=== PATIENT | male | born 1930 | race Two or more races ===

== ENCOUNTER 2021-04-19 14:27 | Inpatient (IN) | payer OTHER ==
[2021-04-19 15:39] LABS: INR 0.99 (0.83-1.09)
[2021-04-19 15:41] LABS: ACTIVATED PTT 29.7 SECONDS (25.2-36.5); BASO % 0.6 % (0-2.0); EOS % 1.9 % (0-4.5); HEMATOCRIT 37.7 % (35.4-49); HEMOGLOBIN 12.9 GM/dL (11.7-16.9); LYMPH % 15.2 % (8-40); MCH 30.3 pg (25.7-33.7); MCHC 34.1 g/dl (32.0-35.9); MEAN CELL VOLUME 88.8 fl (80-96); MEAN PLT VOLUME 7.9 fl (7.5-11.1); MONO % 10.5 % (3.8-10.2); NEUT % 71.8 % (42.8-82.8); PLATELET COUNT 244 10^3/uL (134-434); RBC 4.24 M/mm3 (4.00-5.60); RDW 14.3 % (11.9-15.9); WHITE BLOOD COUNT 9.9 K/mm3 (4.0-10.0)
[2021-04-19 15:53] LABS: CHLORIDE 101 mmol/L (98-107); SODIUM 137 mmol/L (136-145)
[2021-04-19 15:56] LABS: CALCIUM 9.4 mg/dL (8.5-10.1)
[2021-04-19 15:57] LABS: ALBUMIN 4.5 g/dl (3.4-5.0); ANION GAP 7 MMOL/L (8-16); BLOOD UREA NITROGEN 37.5 mg/dL (7-18); CO2 29 mmol/L (21-32); GLUCOSE,RANDOM 133 mg/dL (74-106); MAGNESIUM 2.7 mg/dL (1.8-2.4)
[2021-04-19 16:00] LABS: CREATININE 1.6 mg/dL (0.55-1.3); SGOT/AST 131 U/L (15-37)
[2021-04-19 16:01] LABS: BILIRUBIN,TOTAL 0.4 mg/dL (0.2-1); SGPT/ALT 57 U/L (13-61); TOT PROT 8.2 g/dl (6.4-8.2)
[2021-04-19 16:02] LABS: ALK PHOS 120 U/L (45-117)
[2021-04-19] MEDS ORDERED: SODIUM CHLORIDE 0.9% 500 ML INFUS.BAG IV ONE ×2 (16:08→16:31)
[2021-04-19] MEDS ORDERED: ACETAMINOPHEN 1000 MG/100 ML VIAL (NON FORMULARY) IVPB ONE (16:09)
[2021-04-19 16:38] LABS: EPI CELLS 1 /uL (0-25.1); HYALINE CASTS 1 /uL (0-3.1); URINE APPEARANCE CLEAR; URINE BACTERIA 2 /uL (0-1359); URINE BILIRUBIN NEGATIVE (NEGATIVE); URINE COLOR YELLOW; URINE GLUCOSE (UA) NEGATIVE (NEGATIVE); URINE KETONE NEGATIVE (NEGATIVE); URINE LEUK ESTERASE NEGATIVE (NEGATIVE); URINE NITRITE NEGATIVE (NEGATIVE); URINE PROTEIN NEGATIVE (NEGATIVE); URINE RBC 7 /uL (0-23.9); URINE UROBILINOGEN 0.2 mg/dL (0.2-1.0); URINE WBC 2 /uL (0-25.8)
[2021-04-19] MEDS ORDERED: ACETAMINOPHEN INJECTION 100 ML IVPB ONE (16:55)
[2021-04-19] MEDS ORDERED: ACETAMINOPHEN 500 MG TABLET (FP) PO PRN (19:47)
[2021-04-19] MEDS: SODIUM CHLORIDE 1,000 ML IV SCH (19:55)
[2021-04-19 20:24] LABS: COCAINE, UR NEGATIVE (NEGATIVE); PHENCYCLIDINE,URINE NEGATIVE (NEGATIVE); URINE BARBITURATES NEGATIVE (NEGATIVE)
[2021-04-19 20:29] LABS: OPIATES, URI NEGATIVE (NEGATIVE)
[2021-04-19 20:30] LABS: URINE BENZODIAZEPINES NEGATIVE (NEGATIVE)
[2021-04-19 20:34] LABS: METHADONE, UR NEGATIVE (NEGATIVE)
[2021-04-19 20:36] LABS: URINE AMPHETAMINES NEGATIVE (NEGATIVE)
[2021-04-19] MEDS ORDERED: ATORVASTATIN CA 40 MG TABLET (FP) PO SCH (22:00)
[2021-04-19 22:06] VITALS: BMI 23.2
[2021-04-19] MEDS: HEPARIN NA (PORCINE) 5,000 UNITS/ML 1ML VIAL SQ SCH (22:08)
[2021-04-19] MEDS: MELATONIN 5 MG TABLETS PO PRN (22:08)
[2021-04-20] MEDS: HEPARIN NA (PORCINE) 5,000 UNITS/ML 1ML VIAL SQ SCH ×3 (05:46→22:39)
[2021-04-20 07:36] LABS: EOS % 7.4 % (0-4.5); HEMATOCRIT 36.3 % (35.4-49); HEMOGLOBIN 12.1 GM/dL (11.7-16.9); LYMPH % 30.3 % (8-40); MCH 30.1 pg (25.7-33.7); MCHC 33.4 g/dl (32.0-35.9); MEAN CELL VOLUME 89.9 fl (80-96); MEAN PLT VOLUME 8.2 fl (7.5-11.1); MONO % 10.1 % (3.8-10.2); NEUT % 51.2 % (42.8-82.8); PLATELET COUNT 224 10^3/uL (134-434); RBC 4.04 M/mm3 (4.00-5.60); RDW 14.3 % (11.9-15.9); WHITE BLOOD COUNT 5.9 K/mm3 (4.0-10.0)
[2021-04-20 07:38] LABS: CHLORIDE 108 mmol/L (98-107); SODIUM 141 mmol/L (136-145)
[2021-04-20 07:47] LABS: CALCIUM 8.6 mg/dL (8.5-10.1)
[2021-04-20 07:48] LABS: ANION GAP 6 MMOL/L (8-16); CO2 26 mmol/L (21-32); GLUCOSE,RANDOM 95 mg/dL (74-106); MAGNESIUM 2.4 mg/dL (1.8-2.4)
[2021-04-20 07:49] LABS: ALK PHOS 94 U/L (45-117)
[2021-04-20 07:51] LABS: CHOLESTEROL 158 mg/dL (50-200); CREATININE 1.1 mg/dL (0.55-1.3); PHOSPHOROUS 3.6 mg/dL (2.5-4.9); SGOT/AST 127 U/L (15-37); SGPT/ALT 57 U/L (13-61); TRIGLYCERIDES 95 mg/dL (0-150)
[2021-04-20 07:52] LABS: BILIRUBIN,TOTAL 0.4 mg/dL (0.2-1); LDL CHOLESTEROL (ONLY SJRH) 85 mg/dL (5-100)
[2021-04-20 07:53] LABS: HDL CHOLESTEROL 49 mg/dL (40-60)
[2021-04-20 08:48] LABS: ALBUMIN 3.2 g/dl (3.4-5.0); TOT PROT 6.2 g/dl (6.4-8.2)
[2021-04-20] MEDS: LISINOPRIL 10 MG TABLET PO SCH (10:14)
[2021-04-20] MEDS: SODIUM CHLORIDE 1,000 ML IV SCH ×2 (10:14→18:15)
[2021-04-20] MEDS: ASPIRIN COATED 81 MG TABLET.EC PO SCH (10:14)
[2021-04-20] MEDS: FINASTERIDE 5 MG TABLET (FP) PO SCH (10:14)
[2021-04-20] MEDS: CLOPIDOGREL BISULFATE 75 MG TABLET (FP) PO SCH (10:14)
[2021-04-20] MEDS: MELATONIN 5 MG TABLETS PO PRN (22:39)
[2021-04-21] MEDS: HEPARIN NA (PORCINE) 5,000 UNITS/ML 1ML VIAL SQ SCH ×2 (06:28→13:57)
[2021-04-21 08:28] LABS: HEMATOCRIT 34.2 % (35.4-49); HEMOGLOBIN 11.6 GM/dL (11.7-16.9); MCH 30.3 pg (25.7-33.7); MCHC 33.9 g/dl (32.0-35.9); MEAN CELL VOLUME 89.3 fl (80-96); MEAN PLT VOLUME 8.5 fl (7.5-11.1); PLATELET COUNT 232 10^3/uL (134-434); RBC 3.84 M/mm3 (4.00-5.60); RDW 14.2 % (11.9-15.9); WHITE BLOOD COUNT 6.6 K/mm3 (4.0-10.0)
[2021-04-21 08:45] LABS: ALBUMIN 3.1 g/dl (3.4-5.0); CALCIUM 8.6 mg/dL (8.5-10.1)
[2021-04-21 08:46] LABS: BLOOD UREA NITROGEN 19.2 mg/dL (7-18); MAGNESIUM 2.5 mg/dL (1.8-2.4)
[2021-04-21 08:49] LABS: CREATININE 0.8 mg/dL (0.55-1.3)
[2021-04-21 08:50] LABS: BILIRUBIN,TOTAL 0.2 mg/dL (0.2-1); PHOSPHOROUS 3.1 mg/dL (2.5-4.9)
[2021-04-21 08:51] LABS: TOT PROT 6.2 g/dl (6.4-8.2)
[2021-04-21] MEDS ORDERED: ARTIFICIAL TEARS (POLYVINYL ALCOHOL) OPTH DROPS OU PRN (10:07)
[2021-04-21] MEDS: LISINOPRIL 10 MG TABLET PO SCH (10:59)
[2021-04-21] MEDS: ASPIRIN COATED 81 MG TABLET.EC PO SCH (10:59)
[2021-04-21] MEDS: CLOPIDOGREL BISULFATE 75 MG TABLET (FP) PO SCH (10:59)
[2021-04-21] MEDS: FINASTERIDE 5 MG TABLET (FP) PO SCH (11:00)
[2021-04-21] MEDS: SODIUM CHLORIDE 1,000 ML IV SCH (18:26)
[2021-04-21] MEDS: MELATONIN 5 MG TABLETS PO PRN (21:38)
[2021-04-21] MEDS: traZODone HCL 50 MG TABLET (FP) PO SCH (21:39)
[2021-04-22 08:29] LABS: HEMATOCRIT 37.3 % (35.4-49); HEMOGLOBIN 12.6 GM/dL (11.7-16.9); MCHC 33.8 g/dl (32.0-35.9); MEAN PLT VOLUME 8.2 fl (7.5-11.1); PLATELET COUNT 213 10^3/uL (134-434); RBC 4.19 M/mm3 (4.00-5.60); RDW 14.5 % (11.9-15.9); WHITE BLOOD COUNT 8.1 K/mm3 (4.0-10.0)
[2021-04-22 08:39] LABS: CALCIUM 8.8 mg/dL (8.5-10.1)
[2021-04-22 08:40] LABS: MAGNESIUM 2.2 mg/dL (1.8-2.4)
[2021-04-22 08:43] LABS: CREATININE 0.8 mg/dL (0.55-1.3); PHOSPHOROUS 3.3 mg/dL (2.5-4.9)
[2021-04-22] MEDS: ENOXAPARIN NA (PORCINE) 40 MG/0.4 ML DISP.SYRIN SQ SCH (10:00)
[2021-04-22] MEDS: ASPIRIN COATED 81 MG TABLET.EC PO SCH (10:01)
[2021-04-22] MEDS: CLOPIDOGREL BISULFATE 75 MG TABLET (FP) PO SCH (10:01)
[2021-04-22] MEDS: FINASTERIDE 5 MG TABLET (FP) PO SCH (10:01)
[2021-04-22] MEDS: LISINOPRIL 10 MG TABLET PO SCH (10:02)
[2021-04-22] MEDS ORDERED: SODIUM CHLORIDE 1,000 ML IV SCH (11:45)
[2021-04-22] MEDS ORDERED: amLODIPine BESYLATE 5 MG TABLET (FP) PO ONE (22:25)
[2021-04-22] MEDS: MELATONIN 5 MG TABLETS PO PRN (22:42)
[2021-04-22] MEDS: traZODone HCL 50 MG TABLET (FP) PO SCH (22:42)
[2021-04-23 06:10] VITALS: PULSE 59
[2021-04-23] MEDS ORDERED: LABETALOL HCL 5 MG/1 ML (100MG/20 ML VIAL) IVPUSH ONE (06:16)
[2021-04-23 09:04] LABS: HEMATOCRIT 39.1 % (35.4-49); HEMOGLOBIN 13.4 GM/dL (11.7-16.9); MCH 30.4 pg (25.7-33.7); MCHC 34.3 g/dl (32.0-35.9); MEAN CELL VOLUME 88.6 fl (80-96); PLATELET COUNT 242 10^3/uL (134-434); RBC 4.41 M/mm3 (4.00-5.60); RDW 14.2 % (11.9-15.9); WHITE BLOOD COUNT 9.7 K/mm3 (4.0-10.0)
[2021-04-23 09:40] LABS: BLOOD UREA NITROGEN 14.6 mg/dL (7-18); CALCIUM 9.1 mg/dL (8.5-10.1); MAGNESIUM 2.1 mg/dL (1.8-2.4)
[2021-04-23 09:43] LABS: CREATININE 0.9 mg/dL (0.55-1.3)
[2021-04-23 09:44] LABS: PHOSPHOROUS 3.6 mg/dL (2.5-4.9)
[2021-04-23 09:51] VITALS: BP 152/66; TEMP 98
[2021-04-23] MEDS: LISINOPRIL 10 MG TABLET PO SCH (10:12)
[2021-04-23] MEDS: FINASTERIDE 5 MG TABLET (FP) PO SCH (10:12)
[2021-04-23] MEDS: CLOPIDOGREL BISULFATE 75 MG TABLET (FP) PO SCH (10:12)
[2021-04-23] MEDS: ASPIRIN COATED 81 MG TABLET.EC PO SCH (10:12)
[2021-04-23] MEDS: ENOXAPARIN NA (PORCINE) 40 MG/0.4 ML DISP.SYRIN SQ SCH (10:12)
== END 2021-04-23 11:40 | disposition home or self-care (01) | DRG 683 ==
LOC: JER 14:27 → JERBED 16:41 → J4W 20:56
PROVIDERS: ADMIT Internal Medicine; ATTEND Internal Medicine
DX: N17.9 Acute kidney failure, unspecified (principal); M62.82 Rhabdomyolysis; I10 Essential (primary) hypertension; I73.9 Peripheral vascular disease, unspecified; R55 Syncope and collapse; I65.21 Occlusion and stenosis of right carotid artery; E78.5 Hyperlipidemia, unspecified; N40.0 Benign prostatic hyperplasia without lower urinary tract symptoms
CPT/HCPCS: 36415; 70450-TC; 71045-TC-FY; 80048; 80053; 80061; 80307; 81003; 82550; 82553; 82570; 83036; 83735; 84100; 84300; 84443; 84484; 85025; 85027; 85610; 85730; 87086; 93005; 93010; 93225; 93226; 93306-TC; 93880-TC; 97116-GP; 97161-GP; 99285-25; C9803; J0131; J1644; U0003; U0005

== ENCOUNTER 2021-05-17 09:45 | Inpatient (IN) | payer OTHER ==
[2021-05-17 11:54] LABS: BASO % 0.4 % (0-2.0); EOS % 1.4 % (0-4.5); LYMPH % 8.3 % (8-40); MCH 29.8 pg (25.7-33.7); MCHC 33.3 g/dl (32.0-35.9); MEAN CELL VOLUME 89.4 fl (80-96); MEAN PLT VOLUME 8.6 fl (7.5-11.1); MONO % 4.6 % (3.8-10.2); NEUT % 85.3 % (42.8-82.8); PLATELET COUNT 248 10^3/uL (134-434); RBC 4.36 M/mm3 (4.00-5.60); RDW 13.6 % (11.9-15.9); WHITE BLOOD COUNT 9.8 K/mm3 (4.0-10.0)
[2021-05-17 12:10] LABS: CHLORIDE 105 mmol/L (98-107); SODIUM 138 mmol/L (136-145)
[2021-05-17 12:12] LABS: ALBUMIN 4.1 g/dl (3.4-5.0); ANION GAP 6 MMOL/L (8-16); BLOOD UREA NITROGEN 41.2 mg/dL (7-18); CALCIUM 9.3 mg/dL (8.5-10.1); CO2 27 mmol/L (21-32)
[2021-05-17 12:13] LABS: GLUCOSE,RANDOM 133 mg/dL (74-106)
[2021-05-17 12:15] LABS: SGPT/ALT 32 U/L (13-61)
[2021-05-17 12:16] LABS: CREATININE 1.7 mg/dL (0.55-1.3); SGOT/AST 34 U/L (15-37)
[2021-05-17 12:17] LABS: BILIRUBIN,TOTAL 0.3 mg/dL (0.2-1); TOT PROT 7.9 g/dl (6.4-8.2)
[2021-05-17 12:18] LABS: ALK PHOS 136 U/L (45-117)
[2021-05-17 13:52] LABS: PH,URINE 6.5 (5.0-8.0); URINE APPEARANCE CLEAR; URINE BILIRUBIN NEGATIVE (NEGATIVE); URINE COLOR YELLOW; URINE GLUCOSE (UA) NEGATIVE (NEGATIVE); URINE KETONE NEGATIVE (NEGATIVE); URINE LEUK ESTERASE NEGATIVE (NEGATIVE); URINE NITRITE NEGATIVE (NEGATIVE); URINE PROTEIN NEGATIVE (NEGATIVE); URINE UROBILINOGEN 0.2 mg/dL (0.2-1.0)
[2021-05-17] MEDS ORDERED: SODIUM CHLORIDE 0.9% 500 ML INFUS.BAG IV ONE (17:21)
[2021-05-17] MEDS ORDERED: LISINOPRIL 10 MG TABLET PO ONE (17:59)
[2021-05-17] MEDS ORDERED: HEPARIN NA (PORCINE) 5,000 UNITS/ML 1ML VIAL ONE (18:13)
[2021-05-17] MEDS ORDERED: LISINOPRIL 5 MG TABLET ONE ×2 (18:13→20:10)
[2021-05-17] MEDS ORDERED: ASPIRIN 81 MG CHEWABLE TABLETS ONE ×2 (18:13→20:10)
[2021-05-17] MEDS: FINASTERIDE 5 MG TABLET (FP) PO SCH (20:19)
[2021-05-17] MEDS: ASPIRIN 81 MG CHEWABLE TABLETS PO SCH (20:19)
[2021-05-17] MEDS ORDERED: INSULIN SLIDING SCALE (NOVOLOG) 1 VIAL SQ SCH (22:00)
[2021-05-17] MEDS: SODIUM CHLORIDE 1,000 ML IV SCH (22:48)
[2021-05-18] MEDS: ATORVASTATIN CA 40 MG TABLET (FP) PO SCH ×2 (01:37→21:00)
[2021-05-18] MEDS: HEPARIN NA (PORCINE) 5,000 UNITS/ML 1ML VIAL SQ SCH ×4 (01:37→21:00)
[2021-05-18 01:55] VITALS: BMI 19.9
[2021-05-18] MEDS ORDERED: LABETALOL HCL 100 MG TABLET (FP) PO ONE (04:03)
[2021-05-18] MEDS: SODIUM CHLORIDE 1,000 ML IV SCH (06:05)
[2021-05-18 08:21] LABS: BASO % 1.2 % (0-2.0); EOS % 7.8 % (0-4.5); HEMATOCRIT 35.1 % (35.4-49); HEMOGLOBIN 11.6 GM/dL (11.7-16.9); LYMPH % 24.2 % (8-40); MCH 29.5 pg (25.7-33.7); MCHC 33.1 g/dl (32.0-35.9); MEAN CELL VOLUME 89.2 fl (80-96); MEAN PLT VOLUME 8.8 fl (7.5-11.1); NEUT % 57.8 % (42.8-82.8); PLATELET COUNT 220 10^3/uL (134-434); RBC 3.94 M/mm3 (4.00-5.60); RDW 13.5 % (11.9-15.9); WHITE BLOOD COUNT 5.6 K/mm3 (4.0-10.0)
[2021-05-18 08:30] LABS: BLOOD UREA NITROGEN 28.4 mg/dL (7-18)
[2021-05-18 08:31] LABS: CALCIUM 8.7 mg/dL (8.5-10.1); MAGNESIUM 2.1 mg/dL (1.8-2.4)
[2021-05-18 08:35] LABS: BILIRUBIN,TOTAL 0.4 mg/dL (0.2-1); CREATININE 1.1 mg/dL (0.55-1.3)
[2021-05-18 08:36] LABS: TOT PROT 6.2 g/dl (6.4-8.2)
[2021-05-18 08:37] LABS: ALBUMIN 3.1 g/dl (3.4-5.0)
[2021-05-18] MEDS ORDERED: PNEUMOC 13-VAL CONJ-DIP CRM/PF 0.5 ML DISP.SYRIN IM ONE (10:00)
[2021-05-18] MEDS: FINASTERIDE 5 MG TABLET (FP) PO SCH (10:28)
[2021-05-18] MEDS: ASPIRIN 81 MG CHEWABLE TABLETS PO SCH (10:28)
[2021-05-18] MEDS ORDERED: PENICILLIN G BENZATHINE 2,400,000 UNIT/4 ML PFS IM ONE (14:48)
[2021-05-18 17:24] LABS: HIV INTERPRETATION NEGATIVE (NEGATIVE)
[2021-05-19 02:50] LABS: URINE BARBITURATES NEGATIVE (NEGATIVE); URINE BENZODIAZEPINES NEGATIVE (NEGATIVE)
[2021-05-19 02:51] LABS: METHADONE, UR NEGATIVE (NEGATIVE); PHENCYCLIDINE,URINE NEGATIVE (NEGATIVE)
[2021-05-19 03:14] LABS: COCAINE, UR NEGATIVE (NEGATIVE); OPIATES, URI POSITIVE (NEGATIVE); URINE AMPHETAMINES NEGATIVE (NEGATIVE)
[2021-05-19] MEDS: HEPARIN NA (PORCINE) 5,000 UNITS/ML 1ML VIAL SQ SCH ×3 (06:08→21:46)
[2021-05-19 09:25] LABS: BASO % 0.5 % (0-2.0); EOS % 4.6 % (0-4.5); HEMATOCRIT 33.8 % (35.4-49); HEMOGLOBIN 11.3 GM/dL (11.7-16.9); LYMPH % 15.4 % (8-40); MCH 29.6 pg (25.7-33.7); MCHC 33.4 g/dl (32.0-35.9); MEAN CELL VOLUME 88.6 fl (80-96); MEAN PLT VOLUME 8.9 fl (7.5-11.1); MONO % 5.5 % (3.8-10.2); PLATELET COUNT 207 10^3/uL (134-434); RBC 3.82 M/mm3 (4.00-5.60); RDW 13.7 % (11.9-15.9); WHITE BLOOD COUNT 9.3 K/mm3 (4.0-10.0)
[2021-05-19] MEDS: FINASTERIDE 5 MG TABLET (FP) PO SCH (09:31)
[2021-05-19] MEDS: ASPIRIN 81 MG CHEWABLE TABLETS PO SCH (09:31)
[2021-05-19] MEDS: TAMSULOSIN HCL 0.4 MG CAP PO SCH (09:32)
[2021-05-19 09:36] LABS: ALBUMIN 2.9 g/dl (3.4-5.0); BLOOD UREA NITROGEN 16.3 mg/dL (7-18); CALCIUM 8.5 mg/dL (8.5-10.1)
[2021-05-19 09:48] LABS: BILIRUBIN,TOTAL 0.4 mg/dL (0.2-1); CREATININE 1.1 mg/dL (0.55-1.3); PHOSPHOROUS 2.6 mg/dL (2.5-4.9)
[2021-05-19] MEDS ORDERED: amLODIPine BESYLATE 5 MG TABLET (FP) PO ONE (10:48)
[2021-05-19] MEDS: ATORVASTATIN CA 40 MG TABLET (FP) PO SCH (21:46)
[2021-05-20] MEDS: HEPARIN NA (PORCINE) 5,000 UNITS/ML 1ML VIAL SQ SCH ×3 (05:53→21:14)
[2021-05-20 08:23] LABS: BASO % 1.1 % (0-2.0); EOS % 4.7 % (0-4.5); HEMATOCRIT 35.2 % (35.4-49); HEMOGLOBIN 11.8 GM/dL (11.7-16.9); LYMPH % 20.6 % (8-40); MCH 29.5 pg (25.7-33.7); MCHC 33.6 g/dl (32.0-35.9); MEAN PLT VOLUME 9.1 fl (7.5-11.1); MONO % 6.6 % (3.8-10.2); PLATELET COUNT 209 10^3/uL (134-434); RDW 13.4 % (11.9-15.9); WHITE BLOOD COUNT 7.4 K/mm3 (4.0-10.0)
[2021-05-20 09:06] LABS: ALBUMIN 2.8 g/dl (3.4-5.0); BLOOD UREA NITROGEN 14.7 mg/dL (7-18); CALCIUM 8.8 mg/dL (8.5-10.1)
[2021-05-20 09:07] LABS: MAGNESIUM 2.2 mg/dL (1.8-2.4)
[2021-05-20 09:10] LABS: BILIRUBIN,TOTAL 0.6 mg/dL (0.2-1); PHOSPHOROUS 2.6 mg/dL (2.5-4.9); TOT PROT 6.1 g/dl (6.4-8.2)
[2021-05-20] MEDS: amLODIPine BESYLATE 5 MG TABLET (FP) PO SCH (09:52)
[2021-05-20] MEDS: TAMSULOSIN HCL 0.4 MG CAP PO SCH (09:52)
[2021-05-20] MEDS: FINASTERIDE 5 MG TABLET (FP) PO SCH (09:52)
[2021-05-20] MEDS: ASPIRIN 81 MG CHEWABLE TABLETS PO SCH (09:52)
[2021-05-20] MEDS: ATORVASTATIN CA 40 MG TABLET (FP) PO SCH (21:14)
[2021-05-21] MEDS: HEPARIN NA (PORCINE) 5,000 UNITS/ML 1ML VIAL SQ SCH ×3 (06:07→21:22)
[2021-05-21 09:56] LABS: BASO % 1.1 % (0-2.0); EOS % 5.7 % (0-4.5); HEMATOCRIT 34.2 % (35.4-49); HEMOGLOBIN 11.7 GM/dL (11.7-16.9); LYMPH % 18.3 % (8-40); MCH 29.7 pg (25.7-33.7); MCHC 34.2 g/dl (32.0-35.9); MEAN CELL VOLUME 86.7 fl (80-96); MEAN PLT VOLUME 8.6 fl (7.5-11.1); MONO % 7.4 % (3.8-10.2); NEUT % 67.5 % (42.8-82.8); PLATELET COUNT 212 10^3/uL (134-434); RBC 3.94 M/mm3 (4.00-5.60); RDW 13.4 % (11.9-15.9); WHITE BLOOD COUNT 6.5 K/mm3 (4.0-10.0)
[2021-05-21 10:28] LABS: CALCIUM 8.6 mg/dL (8.5-10.1)
[2021-05-21 10:29] LABS: ALBUMIN 2.8 g/dl (3.4-5.0); BLOOD UREA NITROGEN 15.9 mg/dL (7-18); MAGNESIUM 2.1 mg/dL (1.8-2.4)
[2021-05-21] MEDS: TAMSULOSIN HCL 0.4 MG CAP PO SCH (10:29)
[2021-05-21] MEDS: FINASTERIDE 5 MG TABLET (FP) PO SCH (10:29)
[2021-05-21] MEDS: ASPIRIN 81 MG CHEWABLE TABLETS PO SCH (10:29)
[2021-05-21] MEDS: amLODIPine BESYLATE 5 MG TABLET (FP) PO SCH (10:29)
[2021-05-21 10:30] LABS: BILIRUBIN,TOTAL 0.3 mg/dL (0.2-1)
[2021-05-21 10:31] LABS: TOT PROT 6.2 g/dl (6.4-8.2)
[2021-05-21 10:32] LABS: PHOSPHOROUS 2.3 mg/dL (2.5-4.9)
[2021-05-21 10:33] LABS: CREATININE 1.1 mg/dL (0.55-1.3)
[2021-05-21] MEDS: ATORVASTATIN CA 40 MG TABLET (FP) PO SCH (21:22)
[2021-05-22] MEDS: HEPARIN NA (PORCINE) 5,000 UNITS/ML 1ML VIAL SQ SCH ×3 (05:55→21:59)
[2021-05-22 08:13] LABS: BASO % 1.1 % (0-2.0); EOS % 7.4 % (0-4.5); HEMATOCRIT 35.2 % (35.4-49); HEMOGLOBIN 11.9 GM/dL (11.7-16.9); LYMPH % 22.2 % (8-40); MCH 29.6 pg (25.7-33.7); MCHC 33.7 g/dl (32.0-35.9); MONO % 6.6 % (3.8-10.2); NEUT % 62.7 % (42.8-82.8); PLATELET COUNT 232 10^3/uL (134-434); RBC 4.01 M/mm3 (4.00-5.60); RDW 13.7 % (11.9-15.9); WHITE BLOOD COUNT 7.3 K/mm3 (4.0-10.0)
[2021-05-22 08:42] LABS: BLOOD UREA NITROGEN 16.7 mg/dL (7-18); CALCIUM 8.4 mg/dL (8.5-10.1)
[2021-05-22 08:43] LABS: ALBUMIN 2.9 g/dl (3.4-5.0)
[2021-05-22 08:45] LABS: CREATININE 1.1 mg/dL (0.55-1.3)
[2021-05-22 08:47] LABS: BILIRUBIN,TOTAL 0.3 mg/dL (0.2-1); TOT PROT 6.2 g/dl (6.4-8.2)
[2021-05-22] MEDS: TAMSULOSIN HCL 0.4 MG CAP PO SCH (09:51)
[2021-05-22] MEDS: amLODIPine BESYLATE 5 MG TABLET (FP) PO SCH (09:51)
[2021-05-22] MEDS: FINASTERIDE 5 MG TABLET (FP) PO SCH (09:51)
[2021-05-22] MEDS: ASPIRIN 81 MG CHEWABLE TABLETS PO SCH (09:51)
[2021-05-22] MEDS: ATORVASTATIN CA 40 MG TABLET (FP) PO SCH (21:59)
[2021-05-23] MEDS: HEPARIN NA (PORCINE) 5,000 UNITS/ML 1ML VIAL SQ SCH ×2 (06:54→15:12)
[2021-05-23] MEDS: FINASTERIDE 5 MG TABLET (FP) PO SCH (09:05)
[2021-05-23] MEDS: amLODIPine BESYLATE 5 MG TABLET (FP) PO SCH (09:05)
[2021-05-23] MEDS: ASPIRIN 81 MG CHEWABLE TABLETS PO SCH (09:05)
[2021-05-23] MEDS: TAMSULOSIN HCL 0.4 MG CAP PO SCH (09:05)
[2021-05-23 14:09] VITALS: BP 136/54; PULSE 64; TEMP 98.6
== END 2021-05-23 15:06 | disposition home health service (06) | DRG 897 ==
LOC: JER 09:45 → JERBED 17:22 → J7W 23:28
PROVIDERS: ADMIT Internal Medicine; ATTEND Internal Medicine
PROC: 0J9Q0ZZ Drainage of Right Foot Subcutaneous Tissue and Fascia, Open Approach (ICD-10-PCS; principal; 2021-05-19)
DX: F10.129 Alcohol abuse with intoxication, unspecified (principal); N17.9 Acute kidney failure, unspecified; F03.91 Unspecified dementia, unspecified severity, with behavioral disturbance; L03.115 Cellulitis of right lower limb; E78.5 Hyperlipidemia, unspecified; I10 Essential (primary) hypertension; I73.9 Peripheral vascular disease, unspecified; E86.0 Dehydration; R29.6 Repeated falls; R41.82 Altered mental status, unspecified; N40.0 Benign prostatic hyperplasia without lower urinary tract symptoms; A53.9 Syphilis, unspecified; R23.8 Other skin changes
CPT/HCPCS: 36415; 70450-TC; 71045-TC-FY; 72125-TC; 73630-TC-RT-FY; 76856-TC; 80053; 80307; 81003; 82550; 82553; 82962; 83605; 83735; 84100; 84484; 85025; 85651; 86140; 86593; 86705; 86706; 86780; 87040; 87086; 87340; 87389; 87517; 90670; 93005; 93010; 97116-GP; 97162-GP; 99285-25; C9803; J1644; U0003; U0005

== ENCOUNTER 2021-06-13 15:51 | Inpatient (IN) | payer OTHER ==
[2021-06-13 19:19] LABS: EPI CELLS >36 /uL (0-25.1); HYALINE CASTS 16 /uL (0-3.1); PH,URINE 5.5 (5.0-8.0); URINE APPEARANCE TURBID; URINE BACTERIA 171 /uL (0-1359); URINE BILIRUBIN NEGATIVE (NEGATIVE); URINE COLOR DK YELLOW; URINE GLUCOSE (UA) NEGATIVE (NEGATIVE); URINE KETONE TRACE (NEGATIVE); URINE LEUK ESTERASE NEGATIVE (NEGATIVE); URINE NITRITE NEGATIVE (NEGATIVE); URINE PROTEIN 1+ (NEGATIVE); URINE RBC 49 /uL (0-23.9); URINE WBC 23 /uL (0-25.8)
[2021-06-13 19:40] LABS: BASO % 0.4 % (0-2.0); EOS % 1.4 % (0-4.5); HEMATOCRIT 34.6 % (35.4-49); HEMOGLOBIN 11.5 GM/dL (11.7-16.9); LYMPH % 23.7 % (8-40); MCH 28.5 pg (25.7-33.7); MCHC 33.2 g/dl (32.0-35.9); MEAN PLT VOLUME 7.9 fl (7.5-11.1); MONO % 7.7 % (3.8-10.2); NEUT % 66.8 % (42.8-82.8); PLATELET COUNT 306 10^3/uL (134-434); RBC 4.02 M/mm3 (4.00-5.60); RDW 13.9 % (11.9-15.9); WHITE BLOOD COUNT 9.7 K/mm3 (4.0-10.0)
[2021-06-13 20:01] LABS: ALBUMIN 3.7 g/dl (3.4-5.0); BLOOD UREA NITROGEN 23.3 mg/dL (7-18); CALCIUM 9.2 mg/dL (8.5-10.1)
[2021-06-13 20:04] LABS: CREATININE 1.7 mg/dL (0.55-1.3)
[2021-06-13 20:06] LABS: BILIRUBIN,TOTAL 0.3 mg/dL (0.2-1); TOT PROT 7.1 g/dl (6.4-8.2)
[2021-06-13] MEDS ORDERED: SODIUM CHLORIDE 0.9% 500 ML INFUS.BAG IV ONE (20:34)
[2021-06-13] MEDS ORDERED: amLODIPine BESYLATE 5 MG TABLET (FP) PO SCH (22:00)
[2021-06-13] MEDS ORDERED: amLODIPine BESYLATE 5 MG TABLET (FP) ONE (22:30)
[2021-06-13] MEDS ORDERED: ATORVASTATIN CA 40 MG TABLET (FP) ONE (22:30)
[2021-06-13] MEDS: ATORVASTATIN CA 40 MG TABLET (FP) PO SCH (22:37)
[2021-06-14] MEDS ORDERED: LABETALOL HCL 5 MG/1 ML (100MG/20 ML VIAL) IVPUSH ONE (00:05)
[2021-06-14] MEDS ORDERED: amLODIPine BESYLATE 5 MG TABLET (FP) PO ONE (00:12)
[2021-06-14] MEDS ORDERED: SODIUM CHLORIDE 0.45% 1,000 ML IV SCH (00:15)
[2021-06-14 01:09] LABS: IRON SERUM 36 ug/dL (50-175); TOTAL IRON BINDING CAPACITY 300 ug/dL (250-450)
[2021-06-14] MEDS ORDERED: LORazepam 1 MG TABLET PO PRN (01:34)
[2021-06-14] MEDS ORDERED: HEPARIN NA (PORCINE) 5,000 UNITS/ML 1ML VIAL SQ SCH (06:00)
[2021-06-14 09:02] LABS: URINE AMPHETAMINES NEGATIVE (NEGATIVE); URINE BARBITURATES NEGATIVE (NEGATIVE)
[2021-06-14 09:03] LABS: METHADONE, UR NEGATIVE (NEGATIVE); PHENCYCLIDINE,URINE NEGATIVE (NEGATIVE); URINE BENZODIAZEPINES NEGATIVE (NEGATIVE)
[2021-06-14 09:09] LABS: COCAINE, UR NEGATIVE (NEGATIVE); OPIATES, URI POSITIVE (NEGATIVE)
[2021-06-14] MEDS: NICOTINE 7 MG/24 HOURS TOPICAL PATCH TD SCH (10:20)
[2021-06-14] MEDS ORDERED: CEFTRIAXONE 1 GM in DEXTROSE 5%-WATER - 50 ML IVPB ONE ×2 (16:22→23:00)
[2021-06-14] MEDS ORDERED: FAMOTIDINE 20 MG TABLET PO ONE (19:40)
[2021-06-14] MEDS ORDERED: QUEtiapine FUMARATE 50 MG TABLET PO ONE (20:10)
[2021-06-14] MEDS: amLODIPine BESYLATE 5 MG TABLET (FP) PO SCH (22:00)
[2021-06-14] MEDS ORDERED: amLODIPine BESYLATE 10 MG TABLET (FP) PO SCH (22:00)
[2021-06-14] MEDS: ATORVASTATIN CA 40 MG TABLET (FP) PO SCH (22:00)
[2021-06-14] MEDS: HEPARIN NA (PORCINE) 5,000 UNITS/ML 1ML VIAL SQ SCH (22:01)
[2021-06-14] MEDS ORDERED: cefTRIAXone SODIUM 1 GM VIAL ONE (23:12)
[2021-06-14] MEDS ORDERED: DEXTROSE 5%-WATER - 50 ML IVPB ONE (23:13)
[2021-06-15] MEDS: HEPARIN NA (PORCINE) 5,000 UNITS/ML 1ML VIAL SQ SCH ×4 (06:07→21:57)
[2021-06-15] MEDS: LISINOPRIL 10 MG TABLET PO SCH (06:07)
[2021-06-15 06:15] LABS: URINE AMPHETAMINES NEGATIVE (NEGATIVE); URINE BARBITURATES NEGATIVE (NEGATIVE)
[2021-06-15 06:16] LABS: METHADONE, UR NEGATIVE (NEGATIVE); URINE BENZODIAZEPINES NEGATIVE (NEGATIVE)
[2021-06-15 06:17] LABS: PHENCYCLIDINE,URINE NEGATIVE (NEGATIVE)
[2021-06-15 06:18] LABS: COCAINE, UR NEGATIVE (NEGATIVE); OPIATES, URI POSITIVE (NEGATIVE)
[2021-06-15] MEDS ORDERED: PT OWN MED DRAWER 7, Y5N ONE (08:23)
[2021-06-15] MEDS: NICOTINE 7 MG/24 HOURS TOPICAL PATCH TD SCH (09:15)
[2021-06-15 11:42] VITALS: BMI 18.6
[2021-06-15] MEDS ORDERED: MEROPENEM 1 GM in DEXTROSE 5%-WATER 100 ML IVPB SCH (12:45)
[2021-06-15] MEDS ORDERED: MEROPENEM 500 MG in DEXTROSE 5%-WATER - 100 ML IVPB SCH (13:00)
[2021-06-15] MEDS ORDERED: MEROPENEM 500 MG in DEXTROSE 5%-WATER 100 ML IVPB SCH (13:19)
[2021-06-15] MEDS: CLOPIDOGREL BISULFATE 75 MG TABLET (FP) PO SCH (13:43)
[2021-06-15] MEDS ORDERED: MEROPENEM 500 MG VIAL (RESTRICTED TO ID) IVPB ONE ×2 (13:44→21:55)
[2021-06-15] MEDS ORDERED: DEXTROSE 5%-WATER 100 ML IVPB ONE ×2 (13:44→21:55)
[2021-06-15] MEDS: MEROPENEM 500 MG in DEXTROSE 5%-WATER 100 ML IVPB SCH ×2 (13:51→21:57)
[2021-06-15] MEDS ORDERED: ERTAPENEM SODIUM 0.5 GM in SODIUM CHLORIDE 50 ML IVPB SCH (14:00)
[2021-06-15] MEDS: ATORVASTATIN CA 40 MG TABLET (FP) PO SCH (21:57)
[2021-06-15] MEDS: amLODIPine BESYLATE 5 MG TABLET (FP) PO SCH (21:57)
[2021-06-16] MEDS ORDERED: amLODIPine BESYLATE 10 MG TABLET (FP) PO SCH (07:05)
[2021-06-16] MEDS: HEPARIN NA (PORCINE) 5,000 UNITS/ML 1ML VIAL SQ SCH ×2 (07:21→14:38)
[2021-06-16] MEDS: LISINOPRIL 10 MG TABLET PO SCH (07:21)
[2021-06-16] MEDS ORDERED: amLODIPine BESYLATE 5 MG TABLET (FP) PO ONE (07:30)
[2021-06-16] MEDS ORDERED: MEROPENEM 500 MG VIAL (RESTRICTED TO ID) IVPB ONE (08:52)
[2021-06-16] MEDS ORDERED: PT OWN MED DRAWER 7, Y5N ONE (08:52)
[2021-06-16] MEDS ORDERED: DEXTROSE 5%-WATER 100 ML IVPB ONE (08:52)
[2021-06-16] MEDS: MEROPENEM 500 MG in DEXTROSE 5%-WATER 100 ML IVPB SCH (09:00)
[2021-06-16] MEDS: NICOTINE 7 MG/24 HOURS TOPICAL PATCH TD SCH (09:00)
[2021-06-16] MEDS: CLOPIDOGREL BISULFATE 75 MG TABLET (FP) PO SCH (09:00)
[2021-06-16 10:10] VITALS: BP 171/63; PULSE 67; TEMP 98.4
== END 2021-06-16 14:30 | disposition left against medical advice (07) | DRG 682 ==
LOC: JER 15:51 → JERBED 20:30 → J2W 23:19 → OBSVTOIN 06-14 11:17
PROVIDERS: ADMIT Internal Medicine; ATTEND Internal Medicine
DX: N17.9 Acute kidney failure, unspecified (principal); G93.41 Metabolic encephalopathy; I24.9 Acute ischemic heart disease, unspecified; N39.0 Urinary tract infection, site not specified; R41.82 Altered mental status, unspecified; I10 Essential (primary) hypertension; E78.5 Hyperlipidemia, unspecified; N40.0 Benign prostatic hyperplasia without lower urinary tract symptoms; I73.9 Peripheral vascular disease, unspecified; F03.90 Unspecified dementia, unspecified severity, without behavioral disturbance, psychotic disturbance, mood disturbance, and anxiety; J44.9 Chronic obstructive pulmonary disease, unspecified; F10.10 Alcohol abuse, uncomplicated; R16.0 Hepatomegaly, not elsewhere classified; B96.20 Unspecified Escherichia coli [E. coli] as the cause of diseases classified elsewhere; K40.90 Unilateral inguinal hernia, without obstruction or gangrene, not specified as recurrent; Z86.19 Personal history of other infectious and parasitic diseases; Z88.0 Allergy status to penicillin; Z96.641 Presence of right artificial hip joint; Z89.421 Acquired absence of other right toe(s)
CPT/HCPCS: 36415; 70450-TC; 71045-TC-FY; 74176-TC; 76775-TC; 80053; 80307; 81003; 82550; 82553; 83540; 83550; 84484; 85025; 87086; 87186; 93005; 93010; 99285-25; C9803; G0378; J1644; U0003; U0005

== ENCOUNTER 2021-09-02 16:28 | Emergency (ER) | payer OTHER ==
[2021-09-02 16:40] VITALS: BMI 19.5
[2021-09-02 17:19] LABS: BASO % 0.5 % (0-2.0); EOS % 1.7 % (0-4.5); HEMATOCRIT 34.7 % (35.4-49); HEMOGLOBIN 11.5 GM/dL (11.7-16.9); LYMPH % 16.6 % (8-40); MCH 28.8 pg (25.7-33.7); MCHC 33.1 g/dl (32.0-35.9); MEAN CELL VOLUME 86.8 fl (80-96); MEAN PLT VOLUME 8.7 fl (7.5-11.1); MONO % 5.8 % (3.8-10.2); NEUT % 75.4 % (42.8-82.8); PLATELET COUNT 350 10^3/uL (134-434); RBC 3.99 M/mm3 (4.00-5.60); RDW 15.2 % (11.9-15.9); WHITE BLOOD COUNT 6.4 K/mm3 (4.0-10.0)
[2021-09-02 17:26] LABS: INR 1.09 (0.83-1.09); PROTHROMBIN TIME (PATIENT) 12.5 SEC (9.7-13.0)
[2021-09-02 17:28] LABS: ACTIVATED PTT 21.6 SECONDS (25.2-36.5)
[2021-09-02 17:42] LABS: CHLORIDE 105 mmol/L (98-107); SODIUM 137 mmol/L (136-145)
[2021-09-02 17:43] LABS: CALCIUM 9.1 mg/dL (8.5-10.1)
[2021-09-02 17:44] LABS: ALBUMIN 3.8 g/dl (3.4-5.0); ANION GAP 6 MMOL/L (8-16); CO2 25 mmol/L (21-32); GLUCOSE,RANDOM 134 mg/dL (74-106); MAGNESIUM 2.2 mg/dL (1.8-2.4)
[2021-09-02 17:47] LABS: SGOT/AST 48 U/L (15-37); SGPT/ALT 23 U/L (13-61)
[2021-09-02 17:49] LABS: BILIRUBIN,TOTAL 0.3 mg/dL (0.2-1)
[2021-09-02 17:50] LABS: ALK PHOS 85 U/L (45-117)
[2021-09-02 17:53] LABS: N-TERMINAL BNP 2041.6 pg/ml (5-450)
[2021-09-02 18:35] LABS: EPI CELLS 6 /uL (0-25.1); HYALINE CASTS 6 /uL (0-3.1); URINE APPEARANCE CLOUDY; URINE BACTERIA >9,000 /uL (0-1359); URINE BILIRUBIN NEGATIVE (NEGATIVE); URINE COLOR YELLOW; URINE GLUCOSE (UA) NEGATIVE (NEGATIVE); URINE KETONE NEGATIVE (NEGATIVE); URINE LEUK ESTERASE 2+ (NEGATIVE); URINE NITRITE POSITIVE (NEGATIVE); URINE PROTEIN TRACE (NEGATIVE); URINE RBC 14 /uL (0-23.9); URINE UROBILINOGEN 0.2 mg/dL (0.2-1.0); URINE WBC 570 /uL (0-25.8)
[2021-09-02 18:38] LABS: URINE BARBITURATES NEGATIVE (NEGATIVE)
[2021-09-02 18:39] LABS: COCAINE, UR NEGATIVE (NEGATIVE); PHENCYCLIDINE,URINE NEGATIVE (NEGATIVE); URINE AMPHETAMINES NEGATIVE (NEGATIVE)
[2021-09-02 18:44] LABS: METHADONE, UR POSITIVE (NEGATIVE); OPIATES, URI POSITIVE (NEGATIVE); URINE BENZODIAZEPINES NEGATIVE (NEGATIVE)
[2021-09-03 10:21] VITALS: BP 158/65; PULSE 62; TEMP 98.2
== END 2021-09-03 10:25 | disposition home or self-care (01) ==
LOC: JER 16:28
DX: N30.01 Acute cystitis with hematuria (principal)
CPT/HCPCS: 36415; 80053; 80307; 81003; 83735; 83880; 84484; 85025; 85610; 85730; 87086; 87186; 93005; 93010; 99284-25

== ENCOUNTER 2021-11-11 12:22 | Inpatient (IN) | payer OTHER ==
[2021-11-11 13:12] VITALS: BMI 18.8
[2021-11-11 14:58] LABS: HEMATOCRIT 40.2 % (35.4-49); HEMOGLOBIN 12.9 GM/dL (11.7-16.9); MCH 28.2 pg (25.7-33.7); MCHC 32.1 g/dl (32.0-35.9); MEAN CELL VOLUME 87.8 fl (80-96); MEAN PLT VOLUME 8.2 fl (7.5-11.1); PLATELET COUNT 239 10^3/uL (134-434); RBC 4.58 M/mm3 (4.00-5.60); RDW 14.4 % (11.9-15.9); WHITE BLOOD COUNT 12.3 K/mm3 (4.0-10.0)
[2021-11-11 15:15] LABS: CALCIUM 9.5 mg/dL (8.5-10.1)
[2021-11-11 15:16] LABS: ALBUMIN 4.3 g/dl (3.4-5.0); BLOOD UREA NITROGEN 27.9 mg/dL (7-18)
[2021-11-11 15:19] LABS: CREATININE 1.7 mg/dL (0.55-1.3)
[2021-11-11 15:21] LABS: BILIRUBIN,TOTAL 0.3 mg/dL (0.2-1); TOT PROT 7.4 g/dl (6.4-8.2)
[2021-11-11 15:25] LABS: ANISOCYTOSIS 0; HELMET CELLS 0; HOWELL-JOLLY BODIES 0; MACROCYTOSIS 0; OVALOCYTE 0; ROULEAU 0; SICKELED CELLS 0; TARGET CELLS 0; TEAR DROP CELLS 0; TOXIC GRANULATION 0
[2021-11-11] MEDS ORDERED: SODIUM CHLORIDE 0.9% 500 ML INFUS.BAG IV ONE (15:27)
[2021-11-11 16:47] LABS: URINE APPEARANCE CLEAR; URINE BILIRUBIN NEGATIVE (NEGATIVE); URINE COLOR YELLOW; URINE GLUCOSE (UA) NEGATIVE (NEGATIVE); URINE KETONE NEGATIVE (NEGATIVE); URINE LEUK ESTERASE NEGATIVE (NEGATIVE); URINE NITRITE NEGATIVE (NEGATIVE); URINE PROTEIN NEGATIVE (NEGATIVE); URINE UROBILINOGEN 0.2 mg/dL (0.2-1.0)
[2021-11-11] MEDS ORDERED: ACETAMINOPHEN 325 MG TABLET (FP) PO PRN (18:05)
[2021-11-11] MEDS: ATORVASTATIN CA 40 MG TABLET (FP) PO SCH (22:14)
[2021-11-12 09:17] LABS: HEMOGLOBIN 11.4 GM/dL (11.7-16.9); MCH 29.7 pg (25.7-33.7); MCHC 34.6 g/dl (32.0-35.9); MEAN CELL VOLUME 85.7 fl (80-96); MEAN PLT VOLUME 8.2 fl (7.5-11.1); PLATELET COUNT 176 10^3/uL (134-434); RBC 3.85 M/mm3 (4.00-5.60); RDW 14.3 % (11.9-15.9); WHITE BLOOD COUNT 6.7 K/mm3 (4.0-10.0)
[2021-11-12 09:23] LABS: CALCIUM 8.1 mg/dL (8.5-10.1)
[2021-11-12 09:24] LABS: BLOOD UREA NITROGEN 26.6 mg/dL (7-18)
[2021-11-12 09:27] LABS: CREATININE 1.3 mg/dL (0.55-1.3)
[2021-11-12] MEDS: TAMSULOSIN HCL 0.4 MG CAP PO SCH (09:30)
[2021-11-12] MEDS: CLOPIDOGREL BISULFATE 75 MG TABLET (FP) PO SCH (09:30)
[2021-11-12] MEDS: amLODIPine BESYLATE 5 MG TABLET (FP) PO SCH (09:30)
[2021-11-12] MEDS: FINASTERIDE 5 MG TABLET (FP) PO SCH (09:31)
[2021-11-12] MEDS: ASPIRIN 81 MG CHEWABLE TABLETS PO SCH (09:31)
[2021-11-12] MEDS: LISINOPRIL 10 MG TABLET PO SCH (09:31)
[2021-11-12] MEDS ORDERED: ONDANSETRON 4 MG/2 ML VIAL IVPUSH PRN (18:08)
[2021-11-12] MEDS: HEPARIN NA (PORCINE) 5,000 UNITS/ML 1ML VIAL SQ SCH (21:15)
[2021-11-12] MEDS: ATORVASTATIN CA 40 MG TABLET (FP) PO SCH (21:15)
[2021-11-13] MEDS: TAMSULOSIN HCL 0.4 MG CAP PO SCH (08:28)
[2021-11-13] MEDS: ASPIRIN 81 MG CHEWABLE TABLETS PO SCH (10:00)
[2021-11-13] MEDS: FINASTERIDE 5 MG TABLET (FP) PO SCH (10:00)
[2021-11-13] MEDS: LISINOPRIL 10 MG TABLET PO SCH (10:01)
[2021-11-13] MEDS: CLOPIDOGREL BISULFATE 75 MG TABLET (FP) PO SCH (10:01)
[2021-11-13] MEDS: HEPARIN NA (PORCINE) 5,000 UNITS/ML 1ML VIAL SQ SCH (10:01)
[2021-11-13] MEDS: amLODIPine BESYLATE 5 MG TABLET (FP) PO SCH (10:01)
[2021-11-13 11:20] VITALS: BP 149/73; PULSE 57; TEMP 98.1
== END 2021-11-13 12:42 | disposition left against medical advice (07) | DRG 689 ==
LOC: JER 12:22 → JERBED 14:12 → J8W 21:07
PROVIDERS: ADMIT Internal Medicine; ATTEND Nurse Practitioner Family
DX: N39.0 Urinary tract infection, site not specified (principal); G93.41 Metabolic encephalopathy; I10 Essential (primary) hypertension; N40.0 Benign prostatic hyperplasia without lower urinary tract symptoms; I73.9 Peripheral vascular disease, unspecified; E78.5 Hyperlipidemia, unspecified; F11.10 Opioid abuse, uncomplicated; E86.1 Hypovolemia; E86.0 Dehydration; Z53.29 Procedure and treatment not carried out because of patient's decision for other reasons; Z89.431 Acquired absence of right foot
CPT/HCPCS: 36415; 80048; 80053; 81003; 84443; 85025; 85027; 87040; 87086; 87186; 93005; 93010; 99285-25; C9803-CS; J1644; U0003; U0005

== ENCOUNTER 2022-07-01 20:45 | Observation (INO) | payer OTHER ==
[2022-07-01 23:07] LABS: EOS % 0.7 % (0-4.5); HEMATOCRIT 36.7 % (35.4-49); HEMOGLOBIN 12.1 GM/dL (11.7-16.9); MCH 29.3 pg (25.7-33.7); MCHC 32.9 g/dl (32.0-35.9); MEAN CELL VOLUME 89.1 fl (80-96); MONO % 4.9 % (3.8-10.2); NEUT % 83.4 % (42.8-82.8); PLATELET COUNT 321 10^3/uL (134-434); RBC 4.12 M/mm3 (4.00-5.60); RDW 13.9 % (11.9-15.9); WHITE BLOOD COUNT 8.6 K/mm3 (4.0-10.0)
[2022-07-01 23:17] LABS: INR 1.06 (0.83-1.09); PROTHROMBIN TIME (PATIENT) 12.2 SEC (9.7-13.0)
[2022-07-01 23:19] LABS: ACTIVATED PTT 28.4 SECONDS (25.2-36.5)
[2022-07-01 23:27] LABS: CALCIUM 9.1 mg/dL (8.5-10.1)
[2022-07-01 23:28] LABS: ALBUMIN 3.8 g/dl (3.4-5.0); BLOOD UREA NITROGEN 33.7 mg/dL (7-18)
[2022-07-01 23:30] LABS: CREATININE 1.1 mg/dL (0.55-1.3)
[2022-07-01 23:33] LABS: BILIRUBIN,TOTAL 0.3 mg/dL (0.2-1); TOT PROT 7.2 g/dl (6.4-8.2)
[2022-07-02 04:13] LABS: BLOOD UREA NITROGEN 30.6 mg/dL (7-18); CALCIUM 8.6 mg/dL (8.5-10.1)
[2022-07-02 04:30] LABS: PH,URINE 7.5 (5.0-8.0); URINE APPEARANCE CLEAR; URINE BILIRUBIN NEGATIVE (NEGATIVE); URINE COLOR YELLOW; URINE GLUCOSE (UA) NEGATIVE (NEGATIVE); URINE KETONE NEGATIVE (NEGATIVE); URINE LEUK ESTERASE NEGATIVE (NEGATIVE); URINE NITRITE NEGATIVE (NEGATIVE); URINE PROTEIN TRACE (NEGATIVE)
[2022-07-02] MEDS ORDERED: SODIUM CHLORIDE 1,000 ML IV SCH (04:30)
[2022-07-02 04:57] LABS: PHENCYCLIDINE,URINE NEGATIVE (NEGATIVE); URINE BARBITURATES NEGATIVE (NEGATIVE)
[2022-07-02 04:58] LABS: COCAINE, UR NEGATIVE (NEGATIVE); METHADONE, UR NEGATIVE (NEGATIVE)
[2022-07-02 05:00] LABS: OPIATES, URI POSITIVE (NEGATIVE); URINE AMPHETAMINES NEGATIVE (NEGATIVE); URINE BENZODIAZEPINES NEGATIVE (NEGATIVE)
[2022-07-02] MEDS ORDERED: TAMSULOSIN HCL 0.4 MG CAP ONE (08:26)
[2022-07-02] MEDS: TAMSULOSIN HCL 0.4 MG CAP PO SCH (08:29)
[2022-07-02] MEDS ORDERED: amLODIPine BESYLATE 5 MG TABLET (FP) ONE (09:42)
[2022-07-02] MEDS ORDERED: CLOPIDOGREL BISULFATE 75 MG TABLET (FP) ONE (09:42)
[2022-07-02] MEDS ORDERED: ENOXAPARIN NA (PORCINE) 40 MG/0.4 ML DISP.SYRIN SQ ONE (09:43)
[2022-07-02] MEDS ORDERED: ASPIRIN 81 MG CHEWABLE TABLETS ONE (09:43)
[2022-07-02] MEDS: ASPIRIN 81 MG CHEWABLE TABLETS PO SCH (09:46)
[2022-07-02] MEDS: CLOPIDOGREL BISULFATE 75 MG TABLET (FP) PO SCH (09:46)
[2022-07-02] MEDS: amLODIPine BESYLATE 5 MG TABLET (FP) PO SCH (09:46)
[2022-07-02] MEDS: ENOXAPARIN NA (PORCINE) 40 MG/0.4 ML DISP.SYRIN SQ SCH (09:46)
[2022-07-02] MEDS ORDERED: FAMOTIDINE 20 MG TABLET ONE (11:53)
[2022-07-02] MEDS: FAMOTIDINE 20 MG TABLET PO SCH (11:54)
[2022-07-03] MEDS ORDERED: amLODIPine BESYLATE 5 MG TABLET (FP) PO ONE (06:02)
[2022-07-03] MEDS ORDERED: amLODIPine BESYLATE 5 MG TABLET (FP) ONE ×2 (06:16→09:39)
[2022-07-03] MEDS ORDERED: TAMSULOSIN HCL 0.4 MG CAP ONE (09:40)
[2022-07-03] MEDS ORDERED: FAMOTIDINE 20 MG TABLET ONE (09:40)
[2022-07-03] MEDS ORDERED: ENOXAPARIN NA (PORCINE) 40 MG/0.4 ML DISP.SYRIN SQ ONE (09:40)
[2022-07-03] MEDS ORDERED: CLOPIDOGREL BISULFATE 75 MG TABLET (FP) ONE (09:40)
[2022-07-03] MEDS ORDERED: ASPIRIN 81 MG CHEWABLE TABLETS ONE (09:40)
[2022-07-03] MEDS: TAMSULOSIN HCL 0.4 MG CAP PO SCH (09:41)
[2022-07-03] MEDS: FAMOTIDINE 20 MG TABLET PO SCH (09:41)
[2022-07-03] MEDS: amLODIPine BESYLATE 5 MG TABLET (FP) PO SCH (09:41)
[2022-07-03] MEDS: CLOPIDOGREL BISULFATE 75 MG TABLET (FP) PO SCH (09:41)
[2022-07-03] MEDS: ASPIRIN 81 MG CHEWABLE TABLETS PO SCH (09:41)
[2022-07-03] MEDS: ENOXAPARIN NA (PORCINE) 40 MG/0.4 ML DISP.SYRIN SQ SCH (09:41)
[2022-07-03] MEDS ORDERED: LISINOPRIL 10 MG TABLET ONE (13:17)
[2022-07-03 16:08] VITALS: RESP 18; BMI 17.4
[2022-07-03] MEDS: LISINOPRIL 10 MG TABLET PO SCH (16:19)
[2022-07-03] MEDS: FINASTERIDE 5 MG TABLET (FP) PO SCH (17:23)
[2022-07-04] MEDS: TAMSULOSIN HCL 0.4 MG CAP PO SCH (09:21)
[2022-07-04] MEDS: FINASTERIDE 5 MG TABLET (FP) PO SCH (09:21)
[2022-07-04] MEDS: LISINOPRIL 10 MG TABLET PO SCH (09:21)
[2022-07-04] MEDS: amLODIPine BESYLATE 5 MG TABLET (FP) PO SCH (09:21)
[2022-07-04] MEDS: FAMOTIDINE 20 MG TABLET PO SCH (09:21)
[2022-07-04] MEDS: ENOXAPARIN NA (PORCINE) 40 MG/0.4 ML DISP.SYRIN SQ SCH (09:21)
[2022-07-04] MEDS: ASPIRIN 81 MG CHEWABLE TABLETS PO SCH (09:21)
[2022-07-04] MEDS: CLOPIDOGREL BISULFATE 75 MG TABLET (FP) PO SCH (09:21)
[2022-07-04 13:08] LABS: BLOOD UREA NITROGEN 21.4 mg/dL (7-18); CALCIUM 9.7 mg/dL (8.5-10.1)
[2022-07-04 13:12] LABS: CREATININE 1.1 mg/dL (0.55-1.3)
[2022-07-05] MEDS: amLODIPine BESYLATE 5 MG TABLET (FP) PO SCH (08:59)
[2022-07-05] MEDS: FINASTERIDE 5 MG TABLET (FP) PO SCH (08:59)
[2022-07-05] MEDS: ASPIRIN 81 MG CHEWABLE TABLETS PO SCH (08:59)
[2022-07-05] MEDS: TAMSULOSIN HCL 0.4 MG CAP PO SCH (08:59)
[2022-07-05] MEDS: LISINOPRIL 10 MG TABLET PO SCH (09:00)
[2022-07-05] MEDS: CLOPIDOGREL BISULFATE 75 MG TABLET (FP) PO SCH (09:00)
[2022-07-05] MEDS: FAMOTIDINE 20 MG TABLET PO SCH (09:00)
[2022-07-05] MEDS: ENOXAPARIN NA (PORCINE) 40 MG/0.4 ML DISP.SYRIN SQ SCH (09:00)
[2022-07-05 10:41] VITALS: BP 162/97; PULSE 76; TEMP 98.2
== END 2022-07-05 12:42 | disposition home or self-care (01) ==
LOC: JER 20:45 → INTOOBSV 07-02 05:08 → JERBED 07-02 05:08 → J6S 07-03 15:54
PROVIDERS: ADMIT Internal Medicine; ATTEND Internal Medicine
PROC: 3E023GC Introduction of Other Therapeutic Substance into Muscle, Percutaneous Approach (ICD-10-PCS; principal; 2022-07-02)
PROC: 3E0337Z Introduction of Electrolytic and Water Balance Substance into Peripheral Vein, Percutaneous Approach (ICD-10-PCS; 2022-07-02)
PROC: 3E023GC Introduction of Other Therapeutic Substance into Muscle, Percutaneous Approach (ICD-10-PCS; 2022-07-02)
PROC: 3E0337Z Introduction of Electrolytic and Water Balance Substance into Peripheral Vein, Percutaneous Approach (ICD-10-PCS; 2022-07-02)
DX: G93.40 Encephalopathy, unspecified (principal); F03.90 Unspecified dementia, unspecified severity, without behavioral disturbance, psychotic disturbance, mood disturbance, and anxiety; F19.10 Other psychoactive substance abuse, uncomplicated; J44.9 Chronic obstructive pulmonary disease, unspecified; I10 Essential (primary) hypertension; E78.5 Hyperlipidemia, unspecified; N39.0 Urinary tract infection, site not specified; Z86.19 Personal history of other infectious and parasitic diseases; F11.90 Opioid use, unspecified, uncomplicated; I73.9 Peripheral vascular disease, unspecified; Z29.8 Encounter for other specified prophylactic measures; Z95.5 Presence of coronary angioplasty implant and graft; N40.0 Benign prostatic hyperplasia without lower urinary tract symptoms; Z89.421 Acquired absence of other right toe(s)
CPT/HCPCS: 0241U-QW; 36415; 70450-TC; 71045-TC-FY; 72125-TC; 80048; 80053; 80307; 81003; 84443; 84484; 85025; 85610; 85730; 87086; 87186; 93005; 93010; 96361; 96365; 96372; 97116-GP; 97162-GP; 99285-25; G0378